=== PATIENT | female | born 1965 | race African-American/Black ===

== ENCOUNTER 2016-11-27 01:00 | Observation (INO) | payer OTHER ==
[~2016-11-27] VITALS: Ht 157.5 cm; Wt 65.3 kg
[~2016-11-27 01:00] MED LIST: ALBU0.63 NEB; AMLO10TA4 PO; ASPI325T70 PO; CARV10CP PO; CARV12.52 PO; DESL5TAB PO; IBUP400T PO; ISOS20TA2 PO; ISOS30TA4 PO; LISI10TA2 PO; LORA10TA3 PO; NEBI10TA3 PO; PHEN100T82 PO; SULF1TAB24 PO; TIOT4MIS3 IH; antidepressant
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
--- NOTE | 2016-11-27 01:26 | EKG ---
[address] [address] Test Date: 2016-11-27 Test Time: 01:24:28 Pat Name: YAJAIRA HOBBS Department: Room: Gender: F Research Technologist: : 1965 Requested By: CHASE OLMSTEAD Order Number: [id number] Reading MD: Measurements Intervals [place] Rate: 75 P: 52 FL: 202 QRS: -20 QRSD: 100 T: 126 QT: 408 QTc: 458 Interpretive Statements SINUS RHYTHM LEFTWARD AXIS CONSIDER LEFT VENTRICULAR HYPERTROPHY QRS(T) CONTOUR ABNORMALITY CONSIDER ANTEROSEPTAL MYOCARDIAL DAMAGE ST & T ABNORMALITY, CONSIDER HIGH LATERAL ISCHEMIA OR LEFT VENTRICULAR STRAIN ABNORMAL ECG RI6.01 Unconfirmed report Compared to ECG 07/21/2016 18:45:10 Possible ischemia now present Left anterior fascicular block no longer present Prolonged QT interval no longer present T-wave abnormality still present
[2016-11-27] MEDS ORDERED: IV RINGERS SOLUTION,LACTATED 1,000 ML IV SCH ×2 (01:30→03:00)
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
[2016-11-27 01:47] LABS: BASO # 0.1 x10^3/uL (0.0-0.2); BASO % 1 % (0-3); EOS # 0.1 x10^3/uL (0.0-0.7); EOS % 3 % (0-3); HEMATOCRIT 39.4 % (36.0-47.0); HEMOGLOBIN 13.1 g/dL (12.0-15.5); LYMPH % 54 % (24-48); MEAN CORPUSCULAR HEMOGLOBIN 30 pg (25-35); MEAN CORPUSCULAR HGB CONC 33 g/dL (31-37); MEAN CORPUSCULAR VOLUME 91 fL (79-100); MONO # 0.6 x10^3/uL (0.0-1.1); MONO % 10 % (0-9); NEUT # 1.8 x10^3uL (1.8-7.7); NEUT % 32 % (31-73); PLATELET COUNT 105 x10^3/uL (140-400); RED BLOOD COUNT 4.34 x10^6/uL (3.50-5.40); RED CELL DISTRIBUTION WIDTH 14.5 % (11.5-14.5); WHITE BLOOD COUNT 5.7 x10^3/uL (4.0-11.0)
[2016-11-27] MEDS ORDERED: IV RINGERS SOLUTION,LACTATED 1,000 ML IV ONE (01:47)
[2016-11-27] MEDS ORDERED: ASPIRIN 81 MG TAB.CHEW ONE (01:49)
[2016-11-27] MEDS ORDERED: ASPIRIN 325 MG TABLET PO ONE (02:00)
[2016-11-27 02:06] LABS: ALBUMIN 3.2 g/dL (3.4-5.0); ALK PHOS 72 U/L (46-116); ALT (SGPT) 26 U/L (14-59); ANION GAP 10 (6-14); AST (SGOT) 21 U/L (15-37); BLOOD UREA NITROGEN 8 mg/dL (7-20); CALCIUM 8.4 mg/dL (8.5-10.1); CARBON DIOXIDE 28 mmol/L (21-32); CHLORIDE 109 mmol/L (98-107); CREATINE KINASE 151 U/L (26-192); CREATININE 0.7 mg/dL (0.6-1.0); DIRECT BILIRUBIN 0.1 mg/dL (0.0-0.2); GFR 105.9; GLUCOSE 88 mg/dL (70-99); LIPASE 453 U/L (73-393); MAGNESIUM 1.6 mg/dL (1.8-2.4); POTASSIUM 3.6 mmol/L (3.5-5.1); SODIUM 147 mmol/L (136-145); TOTAL BILIRUBIN 0.2 mg/dL (0.2-1.0); TOTAL PROTEIN 7.2 g/dL (6.4-8.2)
[2016-11-27 02:12] LABS: BARBITURATES NEG (NEG); BENZODIAZEPINES NEG (NEG); CANNABINOIDS NEG (NEG); COCAINE NEG (NEG); METHADONE NEG (NEG); OPIATES NEG (NEG); PHENCYCLIDINE NEG (NEG)
[2016-11-27 02:14] LABS: BACTERIA,URINE 0 /HPF (0-FEW); BILIRUBIN,URINE NEG (NEG); CLARITY,URINE CLEAR; COLOR,URINE YELLOW; GLUCOSE,URINE NEG (NEG); NITRITE,URINE NEG (NEG); RBC,URINE 0 /HPF (0-2); SQUAMOUS EPITHELIAL CELL,UR OCC /LPF; UROBILINOGEN,URINE 0.2 mg/dL (0.2 mg/dL); WBC,URINE OCC /HPF (0-4)
[2016-11-27] MEDS ORDERED: ONDANSETRON PF 4 MG/2 ML VIAL. IV PRN (02:30)
[2016-11-27 02:32] LABS: AMPHETAMINE/METHAMPHETAMINE NEG (NEG)
[2016-11-27] MEDS ORDERED: LORAZEPAM 2 MG/ML VIAL IV PRN (03:00)
[2016-11-27] MEDS ORDERED: MAGNESIUM SULFATE 2GM 50 ML IV ONE (03:00)
--- NOTE | 2016-11-27 03:02 | ACF ---
Admission Criteria Forms TRANSIENT ISCHEMIC ATTACK (TIA) Clinical Indications for Admission to Inpatient Care (Place 'X' for any and all applicable criteria): Admission is indicated for ANY ONE of the following(1)(2)(3)(4)(5): [ ]I. Immediate inpatient procedure is needed (eg, endarterectomy). [ ]II. Inpatient admission required rather than observation care (Also use Transient Ischemic Attack (TIA): Observation Care Criteria as appropriate) because of ANY ONE of the following: [ ]a) Focal neurologic signs or symptoms persist or recurring [ ]b) Cardiac arrhythmias of immediate concern [ ]c) Clinically significant cardiac disorder identified that requires inpatient care (eg, severe valvular disease, atrial myxoma, cardiomyopathy) [ ]d) Hypertension requiring inpatient treatment [ ]e) Parenteral anticoagulation required (eg, alternative forms of anticoagulation not appropriate or not feasible) as indicated by ALL of the following(13): [ ]i) Temporary subtherapeutic anticoagulation unacceptable because of high risk of short-term venous or arterial thromboembolism due to ANY ONE of the following(14)(15)(16): [ ]1) Atrial fibrillation suspected as etiology of TIA(17)(18)(19)(20)(21) [ ]2) Venous thromboembolism within past 12 months [ ]3) Underlying malignancy [ ]4) Patient with mechanical cardiac valve(22)( 23) [ ]5) Underlying hypercoagulable state (eg, protein C or protein S deficiency antithrombin deficiency, antiphospholipid antibodies) [ ]6) Patient at temporary high risk of thromboembolism (eg, status post orthopedic surgery) [ ]ii) Contraindications to outpatient use of "bridging" agent or alternative oral anticoagulant[B] as indicated by ALL of the following: [ ]1) Contraindication to outpatient use of low- molecular-weight heparin as "bridging" agent as indicated by ANY ONE of the following(15): [ ]A. Documented current or history of heparin-induced thrombocytopenia(24) [ ]B. Severe thrombocytopenia (eg, platelet count less than 50,000/mm3 (10z363/L) [ ]C. Documented allergy to heparin, low- molecular-weight heparin, or pork products [ ]D. Renal failure (creatinine clearance less than 30 mL/min/1.73m2 (0.50mL/sec/1.73m2) or on dialysis) [ ]E. Inability to manage self-injection ( eg, by patient, caregiver, or visiting nurse) [ ]2) Contraindication to outpatient use of fondaparinux as "bridging" agent as indicated by ANY ONE of the following(25)(26 )(27)(28): [ ]A. Severe thrombocytopenia (eg, platelet count less than 50,000/mm3 (50 x109/L)) [ ]B.Hypersensitivity to fondaparinux, related drugs, or product components [ ]C.Renal failure (creatinine clearance less than 30 mL/min/1.73m2 (0.50mL/sec/1.73m2) or on dialysis) [ ]D.Inability to manage self-injection ( eg, by patient, caregiver, or visiting nurse [ ]3. Oral direct thrombin inhibitor (eg, dabigatran) or oral coagulation factor Xa inhibitor (eg, rivaroxaban, apixaban) not appropriate as oral anticoagulation (eg, indication not appropriate) or contraindicated (eg, hypersensitivity, creatinine clearance less than 15 mL/min/1.73m2 ( 0.25 mL/sec/1.73m2) or on dialysis). [ ]f) Continuous IV infusion of anticoagulant, platelet inhibitor, vasoactive or antiarrhythmia(18)(19) [ ]g) Other condition, treatment, or monitoring requiring inpatient admission [ ]III. Contraindications and/or Inappropriate clinical situations for Observational Care in patients with Transient Ischemic Attack (TIA), when ANY ONE of the following is required: [ ]a) Patient with persistent or severe neurological deficit 24 [ ]b) Patient with acute CVA or other identified pathology should be admitted to inpatient for further care 25 [ ]IV. General contraindications and/or Inappropriate clinical situations for Observational Care in patients with Transient Ischemic Attack (TIA), when ANY ONE of the following is required: [ ]a) Prediction of prolongation of LOS based on ANY ONE of the following may be considered as a contraindication for observational care 2, 3, 4, 5, 6, 7, 8, 9, 10, 11 [ ]i) Age > 65 yrs. [ ]ii) Patient arriving by ambulance [ ]iii) Patient with high acuity [ ]iv) Patient requiring vital sign monitoring [ ]v) Patient on IV medication [ ]b) Systolic blood pressures 180mmHg 3,12 [ ]c) Patient with altered mental status including delirium and other alteration of consciousness, (3) [ ]d) Patient whose discharge disposition will be to a custodial home or rehabilitation home should not be managed in Emergency Department Observation Unit. CMS rule requires 3 days hospital stay before such placement.3,13 [ ]e) Patient with failure to thrive due to broad array of etiologies 3,16,17 [ ]f) Inability to ambulate 3,14 Extended stay beyond goal length of stay may be needed for(4)(30)(32): [ ]a) Parenteral anticoagulation required [ ]b) Dangerous arrhythmia [ ]c) Cardiac valvular disorder, atrial myxoma, cardiomyopathy [ ]d) Uncontrolled severe hypertension [ ]e) Severe carotid stenosis [ ]f) Active comorbidities (eg, heart failure) [ ]g) Extracranial vertebrobasilar disease(29) [ ]h) Clinical evolution of TIA into cerebrovascular accident (stroke) The original [facility] content created by [email or web address] has been revised. The portions of thecontent which have been revised are identified through the use of italic text or in bold, and [facility] has neither reviewed nor approved the modified material. All other unmodified content is copyright [email or web address]. Please see references footnoted in the original [facility] edition 2016 IVETTE GARCIA Nov 27, 2016 03:02
[2016-11-27 03:14] VITALS: BP 128/86
[2016-11-27] MEDS ORDERED: FLUT16SP NAS (04:07)
[2016-11-27] MEDS ORDERED: OMEP20CA9 PO (04:07)
[2016-11-27] MEDS ORDERED: CARV25TA2 PO (04:07)
[2016-11-27] MEDS ORDERED: FAMO20TA5 PO (04:07)
[2016-11-27] MEDS ORDERED: LISI-334 PO (04:07)
[2016-11-27] MEDS ORDERED: LORA10TA3 PO (04:07)
--- NOTE | 2016-11-27 07:15 | RAD ---
Portable chest, 11/27/2016: History: Dyspnea, chest pain Comparison is made to a study from 07/21/2016. The heart size and pulmonary vascularity are normal. There appears to be a tiny granuloma in the left upper lobe. No acute infiltrates are seen. There is no evidence of pleural fluid. IMPRESSION: No acute cardiopulmonary abnormality is detected.
[2016-11-27] MEDS ORDERED: FAMOTIDINE 20 MG TABLET PO SCH (09:00)
[2016-11-27] MEDS: IPRATRPIUM/ALBUTEROL 0.5/2.5MG 3 ML NEBU. NEB SCH ×4 (09:47→20:31)
[2016-11-27] MEDS: ASPIRIN 81 MG TAB.CHEW PO SCH ×2 (10:07→11:39)
[2016-11-27] MEDS: LORAZEPAM 1 MG TABLET. PO SCH ×4 (10:07→19:54)
[2016-11-27] MEDS ORDERED: MOME13HF IH (10:20)
[2016-11-27] MEDS ORDERED: ALBU18HF IH (10:20)
[2016-11-27] MEDS ORDERED: TIOT18CA IH (10:20)
[2016-11-27] MEDS ORDERED: ASPI81TA2 PO (10:20)
[2016-11-27] MEDS ORDERED: ALBUTEROL SULFATE 8GM INHALER. IH PRN (10:30)
[2016-11-27] MEDS: MVI, ADULT NO.4 WITH VIT K 10 ML, FOLIC ACID SYRINGE for ER 1 MG, THIAMINE 100 MG in IV... IV SCH ×4 (10:34)
[2016-11-27 10:44] VITALS: BP 158/92
[2016-11-27] MEDS ORDERED: ALBUTEROL SULFATE 2.5 MG/3 ML NEBU. NEB PRN (10:45)
[2016-11-27] MEDS: FAMOTIDINE 20 MG TABLET PO SCH ×2 (11:51→19:54)
[2016-11-27] MEDS: LISINOPRIL 20 MG TABLET PO SCH (11:52)
[2016-11-27] MEDS: CETIRIZINE HCL 10 MG TABLET PO SCH (11:52)
[2016-11-27] MEDS: CARVEDILOL 25 MG TABLET PO SCH ×2 (11:53→19:55)
--- NOTE | 2016-11-27 13:08 | RAD ---
Carotid ultrasound, 11/27/2016: History: Left-sided weakness and numbness, left facial drooping. Duplex evaluation of the carotid arteries in neck was performed including grayscale, color-flow and spectral Doppler analysis. There is mild intimal thickening and smooth plaquing in the common carotid arteries and at the carotid bifurcations. The Doppler data obtained from the bifurcations reveals no significant focal velocity acceleration to suggest a hemodynamically significant carotid stenosis. Antegrade flow is present in both vertebral arteries in the neck. IMPRESSION: No duplex evidence of a significant carotid stenosis in the neck. Note: Stenosis calculations for CT, MRA and conventional angiography are based upon determination of the distal ICA diameter in accordance with the NASCET methodology. Stenosis calculations for Doppler studies are derived from validated velocity criteria which are known to correlate with NASCET methodology of determining stenosis.
[2016-11-27 15:47] VITALS: BP 131/94
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
[2016-11-27] MEDS: BUDESONIDE 0.5 MG/2 ML NEBU NEB SCH (20:31)
[2016-11-27] MEDS ORDERED: NON FORMULARY ITEM (Mometasone/Formoterol (Dulera 200 Mcg/5 Mcg Inhaler) 2 PUFF) IH SCH (21:00)
[2016-11-27 21:30] VITALS: BP 146/93
[2016-11-28] MEDS: IPRATRPIUM/ALBUTEROL 0.5/2.5MG 3 ML NEBU. NEB SCH ×2 (05:42→11:18)
[2016-11-28 05:50] VITALS: BP 157/104
[2016-11-28 06:54] LABS: BASO % 1 % (0-3); EOS # 0.2 x10^3/uL (0.0-0.7); EOS % 5 % (0-3); HEMATOCRIT 36.6 % (36.0-47.0); HEMOGLOBIN 11.9 g/dL (12.0-15.5); LYMPH # 1.5 x10^3/uL (1.0-4.8); LYMPH % 37 % (24-48); MEAN CORPUSCULAR HEMOGLOBIN 30 pg (25-35); MEAN CORPUSCULAR HGB CONC 33 g/dL (31-37); MEAN CORPUSCULAR VOLUME 92 fL (79-100); MONO # 0.4 x10^3/uL (0.0-1.1); MONO % 9 % (0-9); NEUT # 1.9 x10^3uL (1.8-7.7); NEUT % 48 % (31-73); PLATELET COUNT 77 x10^3/uL (140-400); RED BLOOD COUNT 3.98 x10^6/uL (3.50-5.40); RED CELL DISTRIBUTION WIDTH 14.2 % (11.5-14.5)
[2016-11-28 07:17] LABS: ALBUMIN 2.8 g/dL (3.4-5.0); ALBUMIN/GLOBULIN RATIO 0.8 (1.0-1.7); CALCIUM 8.3 mg/dL (8.5-10.1); CREATININE 0.7 mg/dL (0.6-1.0); GFR 105.9; POTASSIUM 3.6 mmol/L (3.5-5.1); TOTAL BILIRUBIN 0.5 mg/dL (0.2-1.0); TOTAL PROTEIN 6.5 g/dL (6.4-8.2)
[2016-11-28] MEDS ORDERED: PANTOPRAZOLE 40 MG TABLET. PO SCH (07:30)
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
[2016-11-28] MEDS: CARVEDILOL 25 MG TABLET PO SCH (08:28)
[2016-11-28] MEDS: ASPIRIN 81 MG TAB.CHEW PO SCH ×2 (08:28→08:29)
[2016-11-28] MEDS: CETIRIZINE HCL 10 MG TABLET PO SCH (08:28)
[2016-11-28] MEDS: FAMOTIDINE 20 MG TABLET PO SCH (08:28)
[2016-11-28] MEDS: LISINOPRIL 20 MG TABLET PO SCH (08:29)
[2016-11-28] MEDS: LORAZEPAM 1 MG TABLET. PO SCH ×2 (08:29→11:46)
[2016-11-28] MEDS ORDERED: FLUTICASONE 50MCG/NASAL SPRAY 16GM BOTTLE. NS SCH (09:00)
[2016-11-28] MEDS ORDERED: NON FORMULARY ITEM (Tiotropium Bromide (Spiriva) 1 CAP) IH SCH (09:00)
[2016-11-28] MEDS: MVI, ADULT NO.4 WITH VIT K 10 ML, FOLIC ACID SYRINGE for ER 1 MG, THIAMINE 100 MG in IV... IV SCH ×4 (09:21)
[2016-11-28 10:56] VITALS: BP 160/95
[2016-11-28] MEDS: BUDESONIDE 0.5 MG/2 ML NEBU NEB SCH (11:18)
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
== END 2016-11-28 13:57 | disposition home or self-care (01) ==
LOC: ER 01:00 → ICU 02:37 → INTOOBSV 02:37 → 1 SOUTH 07:17
PROVIDERS: ADMIT Internal Medicine; ATTEND Internal Medicine
DX: F10.129 Alcohol abuse with intoxication, unspecified (principal); H11.32 Conjunctival hemorrhage, left eye; I10 Essential (primary) hypertension; I42.8 Other cardiomyopathies; J45.998 Other asthma; I25.10 Atherosclerotic heart disease of native coronary artery without angina pectoris; F19.10 Other psychoactive substance abuse, uncomplicated; K21.9 Gastro-esophageal reflux disease without esophagitis; H91.92 Unspecified hearing loss, left ear; F32.9 Major depressive disorder, single episode, unspecified; F17.210 Nicotine dependence, cigarettes, uncomplicated; Z86.73 Personal history of transient ischemic attack (TIA), and cerebral infarction without residual deficits; Z82.49 Family history of ischemic heart disease and other diseases of the circulatory system; W34.00XA Accidental discharge from unspecified firearms or gun, initial encounter; Y90.8 Blood alcohol level of 240 mg/100 ml or more
CPT/HCPCS: 36415; 70450; 71010; 80048; 80053; 80061; 80076; 81001; 82553; 83690; 83735; 83880; 84443; 84484; 85027; 85610; 85730; 93005; 93880; 94640; 96361; 96365; 96366; 96367; 97161; 97165; 97530; 99285; A9153; G0378; G0480; G0481; J3411; J3475; J7120; J7620; J7626; G0379

== ENCOUNTER 2016-11-28 20:18 | Emergency (ER) | payer OTHER ==
[~2016-11-28] VITALS: Ht 157.5 cm; Wt 65.4 kg
[~2016-11-28 20:18] MED LIST changes: +ALBU18HF IH; +ASPI81TA2 PO; +CARV25TA2 PO; +FAMO20TA5 PO; +FLUT16SP NAS; +LISI-334 PO; +MOME13HF IH; +OMEP20CA9 PO; +TIOT18CA IH
[2016-11-28 20:29] VITALS: BP 128/83
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
--- NOTE | 2016-11-29 09:00 | RAD ---
Left shoulder, 3 views, 11/28/2016: History: Shoulder pain No fracture or dislocation is identified. There is mild degenerative change at the AC joint. The periarticular soft tissues are unremarkable. IMPRESSION: No acute bony abnormality is detected. Left humerus, 2 views, 11/28/2016: No fracture or destructive bony lesion is seen. The soft tissues are unremarkable. IMPRESSION: No significant left humeral abnormality is detected. Left elbow, 3 views, 11/28/2016: No fracture or dislocation is identified. There is mild spurring at the elbow joint. No significant joint effusion is evident. IMPRESSION: 1. Mild degenerative change. 2. No acute bony abnormality is detected.
== END 2016-11-28 21:22 | disposition left against medical advice (07) ==
LOC: ER 20:18
DX: M25.512 Pain in left shoulder (principal); M79.602 Pain in left arm; K21.9 Gastro-esophageal reflux disease without esophagitis; I10 Essential (primary) hypertension; G43.909 Migraine, unspecified, not intractable, without status migrainosus; E78.00 Pure hypercholesterolemia, unspecified; K27.9 Peptic ulcer, site unspecified, unspecified as acute or chronic, without hemorrhage or perforation
CPT/HCPCS: 73030; 73060; 73080; 99284

== ENCOUNTER 2016-12-29 21:00 | Emergency (ER) | payer OTHER ==
[~2016-12-29] VITALS: Ht 157.5 cm; Wt 65.4 kg
[~2016-12-29 21:00] MED LIST changes: +ASPI-630 PO; -ASPI81TA2 PO; -FLUT16SP NAS; +FLUT16SP21 NAS; -IBUP400T PO; +IBUP400T18 PO
[2016-12-29 21:15] VITALS: BP 105/74
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
[2016-12-29] MEDS ORDERED: IV NORMAL SALINE 1,000ML 1,000 ML IV ONE (21:30)
[2016-12-29 21:51] LABS: BASO # 0.1 x10^3/uL (0.0-0.2); BASO % 1 % (0-3); EOS # 0.1 x10^3/uL (0.0-0.7); EOS % 2 % (0-3); HEMATOCRIT 42.2 % (36.0-47.0); HEMOGLOBIN 14.2 g/dL (12.0-15.5); LYMPH # 3.1 x10^3/uL (1.0-4.8); LYMPH % 53 % (24-48); MEAN CORPUSCULAR HEMOGLOBIN 31 pg (25-35); MEAN CORPUSCULAR HGB CONC 34 g/dL (31-37); MEAN CORPUSCULAR VOLUME 91 fL (79-100); MONO # 0.9 x10^3/uL (0.0-1.1); MONO % 15 % (0-9); NEUT # 1.7 x10^3uL (1.8-7.7); NEUT % 29 % (31-73); PLATELET COUNT 102 x10^3/uL (140-400); RED BLOOD COUNT 4.63 x10^6/uL (3.50-5.40); RED CELL DISTRIBUTION WIDTH 13.9 % (11.5-14.5); WHITE BLOOD COUNT 5.8 x10^3/uL (4.0-11.0)
[2016-12-29 22:01] LABS: CALCIUM 8.7 mg/dL (8.5-10.1); CREATININE 0.7 mg/dL (0.6-1.0); GFR 106.3
[2016-12-29 22:06] LABS: POTASSIUM 2.9 mmol/L (3.5-5.1)
[2016-12-29 22:20] LABS: PREG TEST PT QUAL NEGATIVE (NEG)
[2016-12-29] MEDS ORDERED: POTA10CA PO (22:43)
[2016-12-29] MEDS ORDERED: POTASSIUM CHLORIDE 20 MEQ TABLET.ER. PO ONE (23:00)
== END 2016-12-29 22:50 | disposition home or self-care (01) ==
LOC: EDBD 21:00 → ER 21:00
DX: R19.7 Diarrhea, unspecified (principal); E87.6 Hypokalemia; R74.8 Abnormal levels of other serum enzymes; J45.909 Unspecified asthma, uncomplicated; I25.10 Atherosclerotic heart disease of native coronary artery without angina pectoris; K21.9 Gastro-esophageal reflux disease without esophagitis; I11.9 Hypertensive heart disease without heart failure; F17.210 Nicotine dependence, cigarettes, uncomplicated; F10.10 Alcohol abuse, uncomplicated; Z86.73 Personal history of transient ischemic attack (TIA), and cerebral infarction without residual deficits
CPT/HCPCS: 36415; 80048; 83690; 84703; 85027; 96360; 99284-25; J7030

== ENCOUNTER 2017-01-13 22:55 | Observation (INO) | payer OTHER ==
[~2017-01-13] VITALS: Ht 157.5 cm; Wt 66.5 kg
[~2017-01-13 22:55] MED LIST changes: +POTA10CA PO
[2017-01-13] MEDS ORDERED: 0.9 % SODIUM CHLORIDE 10 ML DISP.SYRIN. IV PRN (23:15)
[2017-01-13] MEDS ORDERED: fentaNYL PF 100 MCG/2 ML VIAL IV PRN (23:15)
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
[2017-01-13] MEDS ORDERED: LORazepam 2 MG/ML VIAL IV ONE (23:30)
[2017-01-13] MEDS ORDERED: IV NORMAL SALINE 1,000ML 1,000 ML IV SCH (23:30)
[2017-01-13 23:31] LABS: BASO % 1 % (0-3); EOS # 0.1 x10^3/uL (0.0-0.7); EOS % 2 % (0-3); HEMATOCRIT 40.6 % (36.0-47.0); HEMOGLOBIN 13.6 g/dL (12.0-15.5); LYMPH # 2.5 x10^3/uL (1.0-4.8); LYMPH % 40 % (24-48); MEAN CORPUSCULAR HEMOGLOBIN 31 pg (25-35); MEAN CORPUSCULAR HGB CONC 34 g/dL (31-37); MEAN CORPUSCULAR VOLUME 92 fL (79-100); MONO # 0.8 x10^3/uL (0.0-1.1); MONO % 13 % (0-9); NEUT # 2.8 x10^3uL (1.8-7.7); NEUT % 45 % (31-73); PLATELET COUNT 150 x10^3/uL (140-400); RED BLOOD COUNT 4.39 x10^6/uL (3.50-5.40); RED CELL DISTRIBUTION WIDTH 15.3 % (11.5-14.5); WHITE BLOOD COUNT 6.3 x10^3/uL (4.0-11.0)
[2017-01-13 23:37] LABS: BARBITURATES NEG (NEG); BENZODIAZEPINES NEG (NEG); CANNABINOIDS NEG (NEG); COCAINE NEG (NEG); METHADONE NEG (NEG); OPIATES NEG (NEG); PHENCYCLIDINE NEG (NEG)
[2017-01-13 23:39] LABS: AMPHETAMINE/METHAMPHETAMINE NEG (NEG)
[2017-01-13 23:45] LABS: BACTERIA,URINE 0 /HPF (0-FEW); BILIRUBIN,URINE NEG (NEG); CLARITY,URINE CLEAR; COLOR,URINE YELLOW; GLUCOSE,URINE NEG (NEG); NITRITE,URINE NEG (NEG); RBC,URINE 0 /HPF (0-2); SQUAMOUS EPITHELIAL CELL,UR OCC /LPF; UROBILINOGEN,URINE 0.2 mg/dL (0.2 mg/dL); WBC,URINE OCC /HPF (0-4)
[2017-01-13 23:47] LABS: ACETAMIN < 2.0 mcg/mL (10-30); ETHANOL 270 mg/dL (0-10); SALIC 2.7 mg/dL (2.8-20.0)
[2017-01-13 23:55] LABS: ALBUMIN 3.1 g/dL (3.4-5.0); ALBUMIN/GLOBULIN RATIO 0.7 (1.0-1.7); ALK PHOS 86 U/L (46-116); ALT (SGPT) 26 U/L (14-59); ANION GAP 10 (6-14); AST (SGOT) 14 U/L (15-37); BLOOD UREA NITROGEN 10 mg/dL (7-20); BUN/CREATININE RATIO 13 (6-20); CALCIUM 8.9 mg/dL (8.5-10.1); CARBON DIOXIDE 29 mmol/L (21-32); CHLORIDE 108 mmol/L (98-107); CREATINE KINASE 52 U/L (26-192); CREATININE 0.8 mg/dL (0.6-1.0); GFR 91.1; GLUCOSE 150 mg/dL (70-99); LIPASE 598 U/L (73-393); MAGNESIUM 1.9 mg/dL (1.8-2.4); POTASSIUM 3.7 mmol/L (3.5-5.1); SODIUM 147 mmol/L (136-145); TOTAL BILIRUBIN 0.2 mg/dL (0.2-1.0); TOTAL PROTEIN 7.3 g/dL (6.4-8.2)
[2017-01-14] VITALS (7 sets, daily range): BP systolic 112–158; BP diastolic 72–103
[2017-01-14] MEDS ORDERED: fentaNYL PF 100 MCG/2 ML VIAL IV PRN (00:15)
[2017-01-14] MEDS ORDERED: ONDANSETRON PF 4 MG/2 ML VIAL. IV PRN (00:15)
[2017-01-14] MEDS ORDERED: ACETAMINOPHEN 325 MG TABLET PO PRN (00:15)
[2017-01-14] MEDS ORDERED: LORazepam 2 MG/ML VIAL IV ONE (00:30)
--- NOTE | 2017-01-14 01:05 | NUR ---
Pt was admitted to [address] [place] [address] from ER via [facility], accompanied by EMS and nursing staff. Pt very reluctant to move over to bed from [facility], stating that she just wanted "to eat something" and that she was cold. Once pt was over to the bed, pt pulled the covers up over her head and asked for food. Pt education given on Pancreatitis and her diet. Pt upset with staff about "starving her" and made multiple phones calls to friends and family to bring her food. Pt answered all admission questions with answers like "I am allergic to not eating", " My pharmacy is [facility] and they would fed me I bet", " I don't have any pain if you let me eat." Pt placed on Telemetry, S tach noted on monitor. Pt lives at home with family. SCDs for VTE. Pt UTD on pneumonia vaccine. Pt given chicken broth, beef broth and Jello. IVFs started per order. The patient was given written information regarding hospital policies, unit procedures and contact persons. Valuables were checked and left in room except for a pack of cigarettes (placed in med room).
[2017-01-14] MEDS: IV NORMAL SALINE 1,000ML 1,000 ML IV SCH ×3 (01:37→20:18)
[2017-01-14] MEDS ORDERED: SACU1TAB7 PO (02:59)
[2017-01-14] MEDS ORDERED: METF500T4 PO (02:59)
--- NOTE | 2017-01-14 06:46 | EKG ---
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
--- NOTE | 2017-01-14 13:21 | NUR ---
Consults: Consults for Dr. Tarango and Dr. Germain ordered. Dr. Tarango's office notified and he has been in to see her. Request for consult for Dr. Germain faxed to [facility].
--- NOTE | 2017-01-14 13:28 | PDOC2 ---
CONSULT The patient has been seen and examined and the full consult has been dictated.~ I have summarized the most important points for review while the note is being transcribed.~ Please see the dictation for complete details. Summary: Chest pain: The patient cannot recall whether she had pain. It appears to be atypical. serial troponins are negative. She had a nonobstructive cardiac catheterization in September 2015. Abnormal EKG: Chronic. Her troponins are negative as above. Nonischemic cardiomyopathy: Mild. There is no evidence of heart failure Elevated lipase: Question alcohol related She can be discharged when okay with Dr. Edwards Problems: FARHAD VILLEDA MD January 14, 2017 13:28
[2017-01-14] MEDS ORDERED: ALBUTEROL SULFATE 8GM INHALER. IH PRN (13:45)
[2017-01-14] MEDS ORDERED: ALBUTEROL SULFATE 2.5 MG/3 ML NEBU. NEB PRN (14:00)
--- NOTE | 2017-01-14 14:05 | NUR ---
DRUG INTERACTIONS: patient home meds list both Entresto and Lisinopril, these are contraindicated together as the risk of angioedema increases as well as duplicate therapy with JESS/ARB combination. Lisinopril has been discontinued, most recent external med history shows that the patient filled Entresto most recently.
[2017-01-14] MEDS: IPRATRPIUM/ALBUTEROL 0.5/2.5MG 3 ML NEBU. NEB SCH ×2 (16:33→20:49)
[2017-01-14] MEDS: CARVEDILOL 25 MG TABLET PO SCH (17:33)
[2017-01-14] MEDS: SACUBITRIL/VALSARTAN 49/51MG TABLET. PO SCH ×2 (17:33→20:18)
[2017-01-14] MEDS ORDERED: LORazepam 1 MG TABLET PO PRN (19:45)
[2017-01-14] MEDS ORDERED: cloNIDine HCL 0.1 MG TABLET PO PRN (19:45)
[2017-01-14] MEDS ORDERED: BUDESONIDE 0.5 MG/2 ML NEBU NEB SCH (20:00)
[2017-01-14] MEDS: FAMOTIDINE 20 MG TABLET PO SCH (20:18)
[2017-01-14] MEDS ORDERED: NON FORMULARY ITEM (Mometasone/Formoterol (Dulera 200 Mcg/5 Mcg Inhaler) 2 PUFF) IH SCH (21:00)
[2017-01-14] MEDS ORDERED: SACUBITRIL/VALSARTAN 49/51MG TABLET. PO SCH (21:00)
[2017-01-14] MEDS ORDERED: CARVEDILOL 25 MG TABLET PO SCH (21:00)
--- NOTE | 2017-01-14 21:08 | PDOC ---
Exam Enoc Demential Exam: Enoc Note: Please also refer to the separate dictated note~for this date of service dictated separately.~Patient seen individually. Discussed the patient with Nursing staff reviewed the chart.~Reviewed interim history and current functioning. Reviewed vital signs,~Labs/ Radiology~and current medications noted below. Continue current treatment with the changes noted in the dictated addendum note Assessment: Vital Signs: Vital Signs Date Time Temp Pulse Resp B/P (MAP) Pulse Ox O2 Delivery O2 Flow Rate FiO2 01/14/17 20:54 98 Room Air 01/14/17 20:18 78 158/99 01/14/17 19:20 98.5 18 I&O Intake and Output 01/14/17 07:00 Intake Total 1783 ml Balance 1783 ml Intake Oral 460 ml IV Total 1323 ml # Voids 1 Labs: Laboratory Tests Test 01/13/17 23:05 01/13/17 23:15 01/14/17 05:48 01/14/17 10:57 White Blood Count 6.3 x10^3/uL (4.0-11.0) Red Blood Count 4.39 x10^6/uL (3.50-5.40) Hemoglobin 13.6 g/dL (12.0-15.5) Hematocrit 40.6 % (36.0-47.0) Mean Corpuscular Volume 92 fL (79-100) Mean Corpuscular Hemoglobin 31 pg (25-35) Mean Corpuscular Hemoglobin Concent 34 g/dL (31-37) Red Cell Distribution Width 15.3 % (11.5-14.5) H Platelet Count 150 x10^3/uL (140-400) Neutrophils (%) (Auto) 45 % (31-73) Lymphocytes (%) (Auto) 40 % (24-48) Monocytes (%) (Auto) 13 % (0-9) H Eosinophils (%) (Auto) 2 % (0-3) Basophils (%) (Auto) 1 % (0-3) Neutrophils # (Auto) 2.8 x10^3uL (1.8-7.7) Lymphocytes # (Auto) 2.5 x10^3/uL (1.0-4.8) Monocytes # (Auto) 0.8 x10^3/uL (0.0-1.1) Eosinophils # (Auto) 0.1 x10^3/uL (0.0-0.7) Basophils # (Auto) 0.0 x10^3/uL (0.0-0.2) Sodium Level 147 mmol/L (136-145) H Potassium Level 3.7 mmol/L (3.5-5.1) Chloride Level 108 mmol/L (98-107) H Carbon Dioxide Level 29 mmol/L (21-32) Anion Gap 10 (6-14) Blood Urea Nitrogen 10 mg/dL (7-20) Creatinine 0.8 mg/dL (0.6-1.0) Estimated GFR (Cockcroft-Gault) 91.1 BUN/Creatinine Ratio 13 (6-20) Glucose Level 150 mg/dL (70-99) H Calcium Level 8.9 mg/dL (8.5-10.1) Magnesium Level 1.9 mg/dL (1.8-2.4) Total Bilirubin 0.2 mg/dL (0.2-1.0) Aspartate Amino Transferase (AST) 14 U/L (15-37) L Alanine Aminotransferase (ALT) 26 U/L (14-59) Alkaline Phosphatase 86 U/L (46-116) Creatine Kinase 52 U/L (26-192) Creatine Kinase MB (Mass) < 0.5 ng/mL (0.0-3.6) Creatine Kinase MB Relative Index 1.0 % (0-4) Troponin I Quantitative < 0.017 ng/mL (0-0.055) < 0.017 ng/mL (0-0.055) < 0.017 ng/mL (0-0.055) JX-Hgb-N-Type Natriuretic Peptide 198 pg/mL (0-124) H Total Protein 7.3 g/dL (6.4-8.2) Albumin 3.1 g/dL (3.4-5.0) L Albumin/Globulin Ratio 0.7 (1.0-1.7) L Lipase 598 U/L (73-393) H Thyroid Stimulating Hormone (TSH) 1.622 uIU/mL (0.358-3.740) Salicylates Level 2.7 mg/dL (2.8-20.0) L Salicylate Last Dose Date 01/13/2017 Salicylate Last Dose Time 0000 Acetaminophen Level < 2.0 mcg/mL (10-30) L Acetaminophen Last Dose Date 01/13/2017 Acetaminophen Last Dose Time 0000 Ethyl Alcohol Level 270 mg/dL (0-10) H Urine Collection Type Unknown Urine Color Yellow Urine Clarity Clear Urine pH 6.0 Urine Specific Colstrip <=1.005 Urine Protein Neg (NEG-TRACE) Urine Glucose (UA) Neg mg/dL (NEG) Urine Ketones (Stick) Neg mg/dL (NEG) Urine Blood Neg (NEG) Urine Nitrite Neg (NEG) Urine Bilirubin Neg (NEG) Urine Urobilinogen Dipstick 0.2 mg/dL (0.2 mg/dL) Urine Leukocyte Esterase Neg (NEG) Urine RBC 0 /HPF (0-2) Urine WBC Occ /HPF (0-4) Urine Squamous Epithelial Cells Occ /LPF Urine Bacteria 0 /HPF (0-FEW) Urine Opiates Screen Neg (NEG) Urine Methadone Screen Neg (NEG) Urine Barbiturates Neg (NEG) Urine Phencyclidine Screen Neg (NEG) Urine Amphetamine/Methamphetamine Neg (NEG) Urine Benzodiazepines Screen Neg (NEG) Urine Cocaine Screen Neg (NEG) Urine Cannabinoids Screen Neg (NEG) Urine Ethyl Alcohol Pos (NEG) Test 01/14/17 16:38 Glucose (Fingerstick) 97 mg/dL (70-99) Current Medications: Meds: Current Medications Lorazepam (Ativan) 1 mg 1X ONCE IV Last administered on 01/13/17 23:24; Start 01/13/17 at 23:30; Stop 01/13/17 at 23:31; Status DC Fentanyl Citrate (Fentanyl 2ml Vial) 25 mcg PRN Q15MIN PRN IV PAIN GREATER THAN 3/10 Last administered on 01/13/17 23:24; Start 01/13/17 at 23:15; Stop at 19:40; Status DC Sodium Chloride 1,000 ml @ 1,000 mls/hr Q1H IV Last administered on 01/13/17 23:24; Start 01/13/17 at 23:30; Stop 01/14/17 at 00:29; Status DC Sodium Chloride (Normal Saline Flush) 10 ml QSHIFT PRN IV AFTER MEDS AND BLOOD DRAWS; Start 01/13/17 at 23:15 Ondansetron HCl (Zofran) 4 mg PRN Q4HRS PRN IV NAUSEA/VOMITING; Start 01/14/17 at 00:15; Stop 01/15/17 at 00:14 Fentanyl Citrate (Fentanyl 2ml Vial) 50 mcg PRN Q1HR PRN IV SEVERE PAIN; Start 01/14/17 at 00:15; Stop 01/14/17 at 19:40; Status DC Sodium Chloride 1,000 ml @ 100 mls/hr Q10H IV Last administered on 01/14/17 20:18; Start 01/14/17 at 00:15; Stop 01/15/17 at 00:14 Acetaminophen (Tylenol) 650 mg PRN Q4HRS PRN PO FEVER; Start 01/14/17 at 00:15 ; Stop 01/15/17 at 00:14 Lorazepam (Ativan) 1 mg 1X ONCE IV Last administered on 01/14/17 01:37; Start 01/14/17 at 00:30; Stop 01/14/17 at 00:31; Status DC Albuterol Sulfate (Ventolin Hfa) 2 puff PRN Q6HRS PRN IH WHEEZING; Start at 13:45; Stop 01/14/17 at 13:56; Status DC Aspirin (Children'S Aspirin) 81 mg DAILY PO ; Start 01/15/17 at 09:00 Carvedilol (Coreg) 25 mg BID PO ; Start 01/14/17 at 21:00; Stop 01/14/17 at 21: 00; Status DC Famotidine (Pepcid) 20 mg BID PO Last administered on 01/14/17 20:18; Start at 21:00 Fluticasone Propionate (Flonase) 2 spray DAILY NS ; Start 01/15/17 at 09:00 Lisinopril (Prinivil) 20 mg DAILY PO ; Start 01/15/17 at 09:00; Stop 01/15/17 at 09:00; Status DC Metformin HCl (Glucophage) 500 mg DAILY08 PO ; Start 01/15/17 at 08:00 Potassium Chloride (Klor-Con) 10 meq DAILYWBKFT PO ; Start 01/15/17 at 08:00 Sacubitril/ Valsartan (Entresto 49 Mg-51 Mg) 1 tab BID PO ; Start 01/14/17 at 21 :00; Stop 01/14/17 at 21:00; Status DC Cetirizine HCl (ZyrTEC) 10 mg DAILY PO ; Start 01/15/17 at 09:00 Non-Formulary Medication 2 puff BID IH ; Start 01/14/17 at 21:00; Stop 01/14/17 at 21:00; Status DC Pantoprazole Sodium (Protonix) 40 mg DAILYAC PO ; Start 01/15/17 at 07:30 Non-Formulary Medication 1 cap DAILY IH ; Start 01/15/17 at 09:00; Stop at 09:00; Status DC Albuterol/ Ipratropium (Duoneb) 3 ml RTQID NEB Last administered on 01/14/17 20:49; Start 01/14/17 at 16:00 Budesonide (Pulmicort) 0.5 mg RTBID NEB Last administered on 01/14/17 20:49; Start 01/14/17 at 20:00 Albuterol Sulfate (Ventolin) 2.5 mg PRN Q6HRS PRN NEB SHORTNESS OF BREATH; Start 01/14/17 at 14:00 Sacubitril/ Valsartan (Entresto 49 Mg-51 Mg) 1 tab BID PO Last administered on 01/14/17 20:18; Start 01/14/17 at 17:30 Carvedilol (Coreg) 25 mg BID PO Last administered on 01/14/17 17:33; Start at 17:30 Lorazepam (Ativan) 2 mg PRN Q1HR PRN PO For CIWA 8-14; Start 01/14/17 at 19:45 Clonidine HCl (Catapres) 0.1 mg PRN Q1HR PRN PO SBP>180 OR DBP>100, MR X 3; Start 01/14/17 at 19:45 Active Scripts Active Potassium Chloride 10 Meq Capsule.er 1 Cap PO DAILY Reported Metformin Hcl 500 Mg Tablet 500 Mg PO DAILY08 LAST DOSE GIVEN: DATE: TIME: NEXT DOSE DUE: DATE: TIME: Entresto 49 mg-51 mg Tablet (Sacubitril/Valsartan) 1 Each Tablet 1 Tab PO BID LAST DOSE GIVEN: DATE: TIME: NEXT DOSE DUE: DATE: TIME: Aspirin 81 Mg Tab.chew 81 Mg PO DAILY LAST DOSE GIVEN: DATE: TIME: NEXT DOSE DUE: DATE: TIME: Dulera 200 Mcg/5 Mcg Inhaler (Mometasone/Formoterol) 13 Gm Hfa.aer.ad 2 Puff IH BID LAST DOSE GIVEN: DATE: TIME: NEXT DOSE DUE: DATE: TIME: Spiriva (Tiotropium Flippin) 18 Mcg Cap.w.dev 1 Cap IH DAILY LAST DOSE GIVEN: DATE: TIME: NEXT DOSE DUE: DATE: TIME: Ventolin Hfa Inhaler (Albuterol Sulfate) 18 Gm Hfa.aer.ad 2 Puff IH PRN Q6HRS PRN LAST DOSE GIVEN: DATE: TIME: NEXT DOSE DUE: DATE: TIME: Famotidine 20 Mg Tablet 20 Mg PO BID LAST DOSE GIVEN: DATE: TIME: NEXT DOSE DUE: DATE: TIME: Omeprazole 20 Mg Capsule.dr 20 Mg PO DAILY LAST DOSE GIVEN: DATE: TIME: NEXT DOSE DUE: DATE: TIME: Loratadine 10 Mg Tablet 10 Mg PO DAILY LAST DOSE GIVEN: DATE: TIME: NEXT DOSE DUE: DATE: TIME: Lisinopril 20 Mg Tablet 20 Mg PO DAILY LAST DOSE GIVEN: DATE: TIME: NEXT DOSE DUE: DATE: TIME: Carvedilol 25 Mg Tablet 25 Mg PO BID LAST DOSE GIVEN: DATE: TIME: NEXT DOSE DUE: DATE: TIME: Fluticasone Propionate Nasal Chrisman (Fluticasone Propionate) 16 Gm Chrisman.susp 2 Chrisman IVVI DAILY LAST DOSE GIVEN: DATE: TIME: NEXT DOSE DUE: DATE: TIME: NAGI HAYES MD January 14, 2017 21:08
[2017-01-15] MEDS: IPRATRPIUM/ALBUTEROL 0.5/2.5MG 3 ML NEBU. NEB SCH (05:49)
[2017-01-15 06:05] VITALS: BP 142/85
[2017-01-15] MEDS ORDERED: PANTOPRAZOLE 40 MG TABLET. PO SCH (07:30)
[2017-01-15] MEDS ORDERED: metFORMIN 500 MG TABLET PO SCH (08:00)
[2017-01-15] MEDS ORDERED: POTASSIUM CHLORIDE 10 MEQ TABLET.ER. PO SCH (08:00)
--- NOTE | 2017-01-15 08:27 | ACF ---
Admission Criteria Forms ALCOHOL AND PSYCHOACTIVE SUBSTANCE WITHDRAWAL Clinical Indications for Inpatient Care (Place ' X' for any and all applicable criteria): Ongoing inpatient care may be indicated for substance withdrawal[B][C] with ANY ONE of the following(1)(2)(3)(4)(21): [ ]I. Delirium due to alcohol or sedative[D] withdrawal is present. [ ]II. Marked signs of withdrawal are present as indicated by ANY ONE of the following(15)(22)(23) [ ]a) Heart rate greater than 120 beats per minute is present. [ ]b) Severe vomiting is present (eg, precludes maintenance of oral hydration). [ ]c) Grossly visible tremor is present. [ ]d) Profuse perspiration is present. [ ]e) Temperature greater than 101 degrees F (38.3 degrees C) is present. [ ]f) Other signs of severe withdrawal are present (eg, Altered mental status ) [ ]g) Severe withdrawal identified by standardized assessment score[A] [ ]III. Signs of withdrawal that require continued inpatient treatment as indicated by ANY ONE of the following(15)(22)(23): [ ]a) Inadequate response to pharmacotherapy (eg, benzodiazepines) [ ]b) Outpatient or lower level of care is not feasible or appropriate (eg, unavailable or inappropriate to patient condition or treatment history). [ ]IV. Withdrawal signs with high-risk indicator are present as manifested by ALL of the following[A](15)(22)(23) [ ]a) Signs of withdrawal are present as indicated by ANY ONE of the following: [ ]i. Tachycardia is present. [ ]ii. Nausea or vomiting is present. [ ]iii. Tremor is present. [ ]iv. Increased perspiration is present. [ ]v. Other signs of withdrawal are present. [ ]vi. Withdrawal identified by standardized assessment score [A] [ ]b) Elevated risk due to historical or comorbid factor is present as indicated by ANY ONE of the following: [ ]i. History of delirium due to withdrawal is present. [ ]ii. History of seizures due to withdrawal is present.[E] [ ]iii. Intrinsic seizure disorder (epilepsy) is present. [ ]iv. Patient is . [ ]v. Other significant medical history (eg, severe cardiac disease) is present, which is assessed to be at risk for destabilization due to withdrawal. [ ]V. Serious electrolyte abnormalities (eg, hyponatremia, hypokalemia, hypophosphatemia) requiring correction performable only in inpatient setting(6)(25) [ ]. Severe hypoglycemia requiring glucose infusions performable only in inpatient setting(6) [ ]VII. Drug toxicity or instability, such as Altered mental status, respiratory depression, or arrhythmias, that requires inpatient care [ ]VIII. Danger judged unmanageable at lower level of care because of ANY ONE of the following [ ]a) Danger to self [ ]b) Danger to others [ ]c) Grave disability (eg, inability to perform self-care necessary at lower level of care) The original [employer] content created by [employer] has been revised. The portions of the content which have been revised are identified through the use of italic text or in bold. [facility] Care [facility] has neither reviewed nor approved the modified material. All other unmodified content is copyright [employer]. Please see references footnoted in the original [facility] CareGuidelines edition 2016 IVETTE GARCIA January 15, 2017 08:27
[2017-01-15] MEDS ORDERED: ESCITALOPRAM 5 MG TABLET PO SCH (09:00)
[2017-01-15] MEDS ORDERED: NON FORMULARY ITEM (Tiotropium Bromide (Spiriva) 1 CAP) IH SCH (09:00)
[2017-01-15] MEDS ORDERED: LISINOPRIL 20 MG TABLET PO SCH (09:00)
[2017-01-15] MEDS ORDERED: ASPIRIN 81 MG TAB.CHEW PO SCH (09:00)
[2017-01-15] MEDS ORDERED: FLUTICASONE 50MCG/NASAL SPRAY 16GM BOTTLE. NS SCH (09:00)
[2017-01-15] MEDS ORDERED: CETIRIZINE HCL 10 MG TABLET PO SCH (09:00)
[2017-01-15] MEDS ORDERED: NICOTINE 14MG PATCH. TD SCH (09:15)
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
[2017-01-15] MEDS: SACUBITRIL/VALSARTAN 49/51MG TABLET. PO SCH (09:42)
[2017-01-15 09:43] VITALS: BP 142/85
[2017-01-15] MEDS: FAMOTIDINE 20 MG TABLET PO SCH (09:43)
[2017-01-15] MEDS: CARVEDILOL 25 MG TABLET PO SCH (09:43)
--- NOTE | 2017-01-15 09:55 | NUR ---
Discharge Note: YAJAIRA HOBBS [address] Discharge instructions and discharge home medications reviewed with Patient and a copy given. All questions have been answered and understanding verbalized. The following instructions and handouts were given: MEDICATIONS, FOLLOW UP INSTRUCTIONS, EDUCATIONAL HANDOUTS GIVEN. Discontinued lines and drains: PERIPHERAL IV DISCONTINUED WITH NO COMPLICATIONS Patient discharged to HOME with FAMILY via AMBULATION. PATIENT STATED TO THIS NURSE THAT SHE WILL BE WALKING HOME. THIS NURSE TOLD THE PATIENT THAT IT WOULD BE PREFERABLE FOR SOMEONE TO COME AND PICK HER UP THE PATIENT STATED "I DON'T WANT TO BE AROUND ANY OF THEM RIGHT NOW. YOU CAN'T MAKE ME DO SHIT ONCE I'M DISCHARGED! I'M WALKING!" THIS NURSE OFFERED TO CALL THE PATIENT A CAB BUT THE PATIENT STATED "I DON'T NEED NO DAMN CAB! [facility] HER DOCTOR'S APPOINMENT."
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
== END 2017-01-15 10:00 | disposition home or self-care (01) ==
LOC: ER 22:55 → 1 SOUTH 01-14 00:20
PROVIDERS: ADMIT Family Medicine; ATTEND Family Medicine
DX: F10.129 Alcohol abuse with intoxication, unspecified (principal); E87.0 Hyperosmolality and hypernatremia; E44.1 Mild protein-calorie malnutrition; R07.9 Chest pain, unspecified; I25.10 Atherosclerotic heart disease of native coronary artery without angina pectoris; K86.1 Other chronic pancreatitis; I10 Essential (primary) hypertension; F17.210 Nicotine dependence, cigarettes, uncomplicated; F41.9 Anxiety disorder, unspecified; J45.909 Unspecified asthma, uncomplicated; K21.9 Gastro-esophageal reflux disease without esophagitis; F33.9 Major depressive disorder, recurrent, unspecified; I42.9 Cardiomyopathy, unspecified; R94.31 Abnormal electrocardiogram [ECG] [EKG]; R74.8 Abnormal levels of other serum enzymes; F19.10 Other psychoactive substance abuse, uncomplicated; E11.9 Type 2 diabetes mellitus without complications; S01.93XA Puncture wound without foreign body of unspecified part of head, initial encounter; W34.00XA Accidental discharge from unspecified firearms or gun, initial encounter; Y92.89 Other specified places as the place of occurrence of the external cause
CPT/HCPCS: 36415; 80053; 81001; 82553; 82947; 83690; 83735; 83880; 84443; 84484; 85027; 93005; 94640; 96361; 96374; 96375; 96376; 99285; 99406; G0378; G0480; G0481; G6038; J2060; J3010; J7030; J7620; J7626; G0379; 80196

== ENCOUNTER → 2017-02-07 | Outpatient (CLI) | payer OTHER ==
[2017-01-15 09:43] VITALS: BP 142/85
[~2017-02-07] MED LIST changes: +METF500T4 PO; +SACU1TAB7 PO
[2017-02-07 11:58] LABS: CALCIUM 8.4 mg/dL (8.5-10.1); CREATININE 0.8 mg/dL (0.6-1.0); GFR 91.1
== END | disposition home or self-care (01) ==
LOC: LAB 10:56
PROVIDERS: ATTEND Internal Medicine Cardiovascular Disease
DX: I42.9 Cardiomyopathy, unspecified (principal)
CPT/HCPCS: 36415; 80048; 83880

== ENCOUNTER → 2017-04-28 | Outpatient (CLI) | payer OTHER ==
[2017-04-28 11:08] LABS: CALCIUM 8.2 mg/dL (8.5-10.1); CREATININE 0.8 mg/dL (0.6-1.0); GFR 91.1
[2017-04-28 11:11] LABS: POTASSIUM 3.4 mmol/L (3.5-5.1)
== END | disposition home or self-care (01) ==
LOC: LAB 10:20
PROVIDERS: ATTEND Internal Medicine Cardiovascular Disease
DX: I42.9 Cardiomyopathy, unspecified (principal)
CPT/HCPCS: 36415; 80048

== ENCOUNTER 2017-12-07 01:24 | Emergency (ER) | payer OTHER ==
[~2017-12-07] VITALS: Ht 157.5 cm; Wt 65.4 kg
[~2017-12-07 01:24] MED LIST changes: -METF500T4 PO; +METF500T5 PO
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
--- NOTE | 2017-12-07 01:51 | EKG ---
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
[2017-12-07] MEDS ORDERED: IOHEXOL 300 MG/ML 75 ML VIAL. IV ONE (02:00)
[2017-12-07] MEDS ORDERED: MORPHINE SULFATE 10 MG/ML SYRINGE. SQ ONE (02:00)
[2017-12-07] MEDS ORDERED: CONTRAST GIVEN MC PRN (02:00)
[2017-12-07 02:22] LABS: BARBITURATES NEG (NEG); BENZODIAZEPINES NEG (NEG); CANNABINOIDS NEG (NEG); COCAINE NEG (NEG); METHADONE NEG (NEG); OPIATES NEG (NEG); PHENCYCLIDINE NEG (NEG)
[2017-12-07 02:23] LABS: BASO # 0.1 x10^3/uL (0.0-0.2); BASO % 2 % (0-3); EOS # 0.1 x10^3/uL (0.0-0.7); EOS % 3 % (0-3); HEMATOCRIT 40.8 % (36.0-47.0); LYMPH # 2.9 x10^3/uL (1.0-4.8); LYMPH % 54 % (24-48); MEAN CORPUSCULAR HEMOGLOBIN 31 pg (25-35); MEAN CORPUSCULAR HGB CONC 34 g/dL (31-37); MEAN CORPUSCULAR VOLUME 89 fL (79-100); MONO # 0.6 x10^3/uL (0.0-1.1); MONO % 10 % (0-9); NEUT # 1.7 x10^3uL (1.8-7.7); NEUT % 31 % (31-73); PLATELET COUNT 149 x10^3/uL (140-400); RED BLOOD COUNT 4.57 x10^6/uL (3.50-5.40); RED CELL DISTRIBUTION WIDTH 14.9 % (11.5-14.5); WHITE BLOOD COUNT 5.4 x10^3/uL (4.0-11.0)
[2017-12-07 02:23] LABS: BACTERIA,URINE FEW /HPF (0-FEW); BILIRUBIN,URINE NEG (NEG); CLARITY,URINE CLEAR; COLOR,URINE STRAW; GLUCOSE,URINE NEG (NEG); NITRITE,URINE NEG (NEG); RBC,URINE OCC /HPF (0-2); SQUAMOUS EPITHELIAL CELL,UR OCC /LPF; UROBILINOGEN,URINE 0.2 mg/dL (0.2 mg/dL); WBC,URINE OCC /HPF (0-4)
[2017-12-07 02:31] LABS: AMPHETAMINE/METHAMPHETAMINE NEG (NEG)
[2017-12-07 02:39] LABS: ALBUMIN 3.6 g/dL (3.4-5.0); CALCIUM 8.6 mg/dL (8.5-10.1); CREATININE 0.8 mg/dL (0.6-1.0); DIRECT BILIRUBIN 0.1 mg/dL (0.0-0.2); GFR 90.8; MAGNESIUM 1.7 mg/dL (1.8-2.4); POTASSIUM 3.8 mmol/L (3.5-5.1); TOTAL BILIRUBIN 0.3 mg/dL (0.2-1.0); TOTAL PROTEIN 7.5 g/dL (6.4-8.2)
[2017-12-07] MEDS ORDERED: IV NORMAL SALINE 100ML 100 ML ONE (04:29)
[2017-12-07] MEDS ORDERED: MAGNESIUM SULFATE 2GM 50 ML IV ONE (04:30)
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
[2017-12-07] MEDS ORDERED: HYDR-79 PO (05:26)
[2017-12-07 06:05] VITALS: BP 115/84
--- NOTE | 2017-12-07 08:38 | RAD ---
AP chest x-ray History: Fall, chest pain. Comparison: Chest x-ray November 27, 2016 Findings: Borderline cardiomegaly is stable. Tortuosity/ectasia of the thoracic aorta is stable. Left hilar calcified granulomas. No pneumothorax, pulmonary opacities or pleural effusions. Old left ninth and 10th rib deformities. Small left upper lobe calcified granuloma. Impression: No acute process.
== END 2017-12-07 06:05 | disposition home or self-care (01) ==
LOC: ER 01:24
DX: S22.018A Other fracture of first thoracic vertebra, initial encounter for closed fracture (principal); S83.30XA Tear of articular cartilage of unspecified knee, current, initial encounter; S20.212A Contusion of left front wall of thorax, initial encounter; S30.1XXA Contusion of abdominal wall, initial encounter; M54.2 Cervicalgia; K21.9 Gastro-esophageal reflux disease without esophagitis; F10.129 Alcohol abuse with intoxication, unspecified; E83.42 Hypomagnesemia; I11.0 Hypertensive heart disease with heart failure; I50.9 Heart failure, unspecified; G51.0 Bell's palsy; I25.10 Atherosclerotic heart disease of native coronary artery without angina pectoris; F32.9 Major depressive disorder, single episode, unspecified; G43.909 Migraine, unspecified, not intractable, without status migrainosus; J45.909 Unspecified asthma, uncomplicated; I25.2 Old myocardial infarction; F41.9 Anxiety disorder, unspecified; F17.210 Nicotine dependence, cigarettes, uncomplicated; F10.10 Alcohol abuse, uncomplicated; Z86.73 Personal history of transient ischemic attack (TIA), and cerebral infarction without residual deficits; W10.8XXA Fall (on) (from) other stairs and steps, initial encounter; Y93.89 Activity, other specified; Y99.8 Other external cause status; Y92.89 Other specified places as the place of occurrence of the external cause
CPT/HCPCS: 36415; 70450; 71045; 71260; 72125; 74177; 80048; 80076; 80307; 81001; 82553; 83690; 83735; 83880; 84443; 84484; 85025; 85610; 85730; 93005; 96365; 99285; G0480; J3475; Q9967; G0479

== ENCOUNTER 2018-08-07 22:01 | Emergency (ER) | payer OTHER ==
[~2018-08-07] VITALS: Ht 157.5 cm; Wt 62.6 kg
[~2018-08-07 22:01] MED LIST changes: -ALBU18HF IH; +ALBU2.5V8 IH; -CARV12.52 PO; +CARV12.547 PO; +HYDR-1179 PO; +METF500T16 PO; -METF500T5 PO
[2018-08-07] MEDS ORDERED: PRED50TA PO (22:19)
[2018-08-07] MEDS ORDERED: AMOX1TAB58 PO (22:19)
--- NOTE | 2018-08-07 22:32 | ED.ADGEN ---
Past History Past Medical History: Asthma, CAD, Depression, Diabetes, GERD, Heart Disease, Hypertension, Migraines, TIA, Other Past Surgical History: Smoking: Cigarettes Alcohol Use: Heavy Drug Use: None Adult General Chief Complaint Chief Complaint cough HPI HPI 52 years old female with multiple medical problems including COPD presented emergency department with wheezing and experiencing exertional shortness of breath for the past week no fever no chills Review of Systems Review of Systems Constitutional: Denies fever or chills [] Eyes: Denies change in visual acuity, redness, or eye pain [] HENT: Denies nasal congestion or sore throat [] Cardiovascular: No additional information not addressed in HPI [] GI: Denies abdominal pain, nausea, vomiting, bloody stools or diarrhea [] : Denies dysuria or hematuria [] Musculoskeletal: Denies back pain or joint pain [] Integument: Denies rash or skin lesions [] Neurologic: Denies headache, focal weakness or sensory changes [] Endocrine: Denies polyuria or polydipsia [] All other systems were reviewed and found to be within normal limits, except as documented in this note. Current Medications Current Medications Current Medications Medications (Trade) Dose Ordered Sig/Madhav Start Time Stop Time Status Last Admin Dose Admin Albuterol Sulfate (Ventolin) 2.5 mg 1X ONCE 08/07/18 22:45 08/07/18 22:46 Prednisone (Prednisone) 60 mg 1X ONCE 08/07/18 22:45 08/07/18 22:46 Allergies Allergies Allergies Coded Allergies Type Severity Reaction Last Updated Verified No Known Drug Allergies 09/28/15 No Physical Exam Physical Exam Constitutional: Well developed, well nourished, no acute distress, non-toxic appearance. [] HENT: Normocephalic, atraumatic, bilateral external ears normal, oropharynx moist, no oral exudates, nose normal. [] Eyes: PERRLA, EOMI, conjunctiva normal, no discharge. [] Neck: Normal range of motion, no tenderness, supple, no stridor. [] Cardiovascular:Heart rate regular rhythm, no murmur [] Lungs & Thorax: Diminished wheezing bilaterally] Abdomen: Bowel sounds normal, soft, no tenderness, no masses, no pulsatile masses. [] Skin: Warm, dry, no erythema, no rash. [] Back: No tenderness, no CVA tenderness. [] Extremities: No tenderness, no cyanosis, no clubbing, ROM intact, no edema. [] Neurologic: Alert and oriented X 3, normal motor function, normal sensory function, no focal deficits noted. [] Psychologic: Affect normal, judgement normal, mood normal. [] Current Patient Data Vital Signs Vital Signs Date Time Temp Pulse Resp B/P (MAP) Pulse Ox O2 Delivery O2 Flow Rate FiO2 08/07/18 22:11 97.4 95 16 99 Room Air EKG EKG [] Radiology/Procedures Radiology/Procedures [] Course & Med Decision Making Course & Med Decision Making Pertinent Labs and Imaging studies reviewed. (See chart for details) [] Final Impression Final Impression [] Problems: (1) COPD exacerbation Dragon Disclaimer Dragon Disclaimer This electronic medical record was generated, in whole or in part, using a voice recognition dictation system. RIA BUSTAMANTE MD Aug 07, 2018 22:32
[2018-08-07] MEDS ORDERED: ALBUTEROL SULFATE 2.5 MG/3 ML NEBU. NEB ONE (22:45)
[2018-08-07] MEDS ORDERED: predniSONE 20 MG TABLET PO ONE (22:45)
[2018-08-07 23:00] VITALS: BP 125/54
[2018-08-07] MEDS ORDERED: VARE1TAB20 PO (23:12)
[2018-08-07] MEDS ORDERED: ERYTHROMYCIN OP IO (23:12)
[2018-08-07] MEDS ORDERED: OLOP2.5D OP (23:12)
[2018-08-07] MEDS ORDERED: SPIR25TA5 PO (23:13)
[2018-08-07] MEDS ORDERED: MONT10TA9 PO (23:13)
--- NOTE | 2018-08-08 00:06 | RAD ---
Examination: CHEST AP ONLY History: Cough. Hx COPD Comparison/Correlation: None Findings: Upright portable frontal view chest was obtained. Heart size and pulmonary vascular are normal. No infiltrate or pleural effusion. Old left lower rib fractures are present. No pneumothorax. Impression: No active disease. Electronically signed by: Hector Harley MD (08/08/2018 12:02 AM) [facility]
== END 2018-08-07 23:06 | disposition home or self-care (01) ==
LOC: ER 22:01
DX: J44.1 Chronic obstructive pulmonary disease with (acute) exacerbation (principal); I25.10 Atherosclerotic heart disease of native coronary artery without angina pectoris; F32.9 Major depressive disorder, single episode, unspecified; E11.9 Type 2 diabetes mellitus without complications; K21.9 Gastro-esophageal reflux disease without esophagitis; I11.9 Hypertensive heart disease without heart failure; G43.909 Migraine, unspecified, not intractable, without status migrainosus; F17.210 Nicotine dependence, cigarettes, uncomplicated; F10.20 Alcohol dependence, uncomplicated; Z86.73 Personal history of transient ischemic attack (TIA), and cerebral infarction without residual deficits; Y90.9 Presence of alcohol in blood, level not specified
CPT/HCPCS: 71045; 94640; 99284; J7512; J7613

== ENCOUNTER 2018-09-01 20:10 | Emergency (ER) | payer OTHER ==
[~2018-09-01] VITALS: Ht 157.5 cm; Wt 65.4 kg
[~2018-09-01 20:10] MED LIST changes: +AMOX1TAB58 PO; +ERYTHROMYCIN OP IO; +MONT10TA9 PO; +OLOP2.5D OP; +PRED50TA PO; +SPIR25TA5 PO; +VARE1TAB20 PO
[2018-09-01 20:14] VITALS: BP 137/101
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
== END 2018-09-01 20:48 | disposition left against medical advice (07) ==
LOC: ER 20:10 → EEVIPCON 20:10 → ER 20:48
DX: R51 Headache (principal); J45.909 Unspecified asthma, uncomplicated; I25.10 Atherosclerotic heart disease of native coronary artery without angina pectoris; F32.9 Major depressive disorder, single episode, unspecified; E11.9 Type 2 diabetes mellitus without complications; K21.9 Gastro-esophageal reflux disease without esophagitis; I11.9 Hypertensive heart disease without heart failure; G43.909 Migraine, unspecified, not intractable, without status migrainosus; F17.210 Nicotine dependence, cigarettes, uncomplicated; F10.20 Alcohol dependence, uncomplicated; Z86.73 Personal history of transient ischemic attack (TIA), and cerebral infarction without residual deficits; Y90.9 Presence of alcohol in blood, level not specified; Y08.89XA Assault by other specified means, initial encounter; Y93.89 Activity, other specified; Y92.89 Other specified places as the place of occurrence of the external cause; Y99.8 Other external cause status
CPT/HCPCS: 99281; 99283

== ENCOUNTER 2018-10-31 01:17 | Emergency (ER) | payer OTHER ==
[~2018-10-31] VITALS: Ht 157.5 cm; Wt 59.0 kg
--- NOTE | 2018-10-31 01:39 | PHYS DOC ---
Past History Past Medical History: Asthma, CAD, Depression, Diabetes, GERD, Heart Disease, Hypertension, Migraines, TIA, Other Past Surgical History: Smoking: Cigarettes Alcohol Use: Heavy Drug Use: None Adult General HPI HPI Patient is a 52-year-old female who arrives via EMS with report of intermittent chest pain that started 2 days ago. Patient states that her pain is currently gone but states that her last episode of pain was just before calling EMS. She states the pain is sharp and stabbing in nature when it calms and states that it lasts about 3-5 minutes at a time. She states that the pain tends to start at rest and spontaneously resolves. She is not aware of any exacerbating or alleviating factors. She denies having had any nausea, vomiting or diaphoresis. Patient does admit to drinking some alcohol tonight. Review of Systems Review of Systems Constitutional: Denies fever or chills [] Respiratory: Denies cough or shortness of breath [] Cardiovascular: No additional information not addressed in HPI [] GI: Denies abdominal pain, nausea, vomiting or diarrhea [] Musculoskeletal: Denies back pain or joint pain [] Integument: Denies rash or skin lesions [] Neurologic: Denies headache, focal weakness or sensory changes [] All other systems were reviewed and found to be within normal limits, except as documented in this note. Current Medications Current Medications Current Medications Medications (Trade) Dose Ordered Sig/Madhav Start Time Stop Time Status Last Admin Dose Admin Sodium Chloride 1,000 ml @ 1,000 mls/hr Q1H 10/31/18 02:00 10/31/18 02:59 Allergies Allergies Allergies Coded Allergies Type Severity Reaction Last Updated Verified No Known Drug Allergies 08/07/18 No Physical Exam Physical Exam Constitutional: Well developed, well nourished, no acute distress, strong smell of alcohol on patient's breath. [] HENT: Normocephalic, atraumatic, bilateral external ears normal, oropharynx moist, no oral exudates, nose normal. [] Eyes: PERRLA, EOMI, conjunctiva normal, no discharge. [] Neck: Normal range of motion, no tenderness, supple, no stridor. [] Cardiovascular: Regular rate and rhythm[] Lungs & Thorax: Bilateral breath sounds clear to auscultation [] Abdomen: Bowel sounds normal, soft, no tenderness. [] Skin: Warm, dry, no erythema, no rash. [] Extremities: No tenderness, no cyanosis, no clubbing, ROM intact, no edema. [] Neurologic: Alert and oriented X 3, no focal deficits noted. [] EKG EKG EKG demonstrates normal sinus rhythm.[] Radiology/Procedures Radiology/Procedures [] Impressions: Chest x-ray demonstrates no acute process. Course & Med Decision Making Course & Med Decision Making Pertinent Labs and Imaging studies reviewed. (See chart for details) [] Dragon Disclaimer Dragon Disclaimer This electronic medical record was generated, in whole or in part, using a voice recognition dictation system. Departure Departure: Impression: Primary Impression: Chest wall pain Additional Impression: Alcohol intoxication Disposition: 01 HOME, SELF-CARE Condition: STABLE Referrals: AHMET COLÓN MD (PCP) Patient Instructions: Alcohol Intoxication, Chest Wall Pain Problem Qualifiers Additional Impression: Alcohol intoxication Complication of substance-induced condition: uncomplicated Qualified Codes: F10.920 - Alcohol use, unspecified with intoxication, uncomplicated JULIEN NESS Jr. DO Oct 31, 2018 01:39
[2018-10-31] MEDS ORDERED: IV NORMAL SALINE 1,000ML 1,000 ML IV SCH (02:00)
[2018-10-31 02:24] LABS: BASO % 1 % (0-3); EOS # 0.1 x10^3/uL (0.0-0.7); EOS % 3 % (0-3); HEMATOCRIT 40.3 % (36.0-47.0); HEMOGLOBIN 13.6 g/dL (12.0-15.5); LYMPH # 2.4 x10^3/uL (1.0-4.8); LYMPH % 53 % (24-48); MEAN CORPUSCULAR HEMOGLOBIN 31 pg (25-35); MEAN CORPUSCULAR HGB CONC 34 g/dL (31-37); MEAN CORPUSCULAR VOLUME 92 fL (79-100); MONO # 0.6 x10^3/uL (0.0-1.1); MONO % 13 % (0-9); NEUT # 1.4 x10^3uL (1.8-7.7); NEUT % 31 % (31-73); PLATELET COUNT 75 x10^3/uL (140-400); RED BLOOD COUNT 4.38 x10^6/uL (3.50-5.40); RED CELL DISTRIBUTION WIDTH 13.2 % (11.5-14.5); WHITE BLOOD COUNT 4.6 x10^3/uL (4.0-11.0)
[2018-10-31 02:27] LABS: BACTERIA,URINE FEW /HPF (0-FEW); BILIRUBIN,URINE NEG (NEG); CLARITY,URINE CLEAR; COLOR,URINE STRAW; GLUCOSE,URINE NEG (NEG); NITRITE,URINE NEG (NEG); RBC,URINE 0 /HPF (0-2); SQUAMOUS EPITHELIAL CELL,UR FEW /LPF; UROBILINOGEN,URINE 0.2 mg/dL (0.2 mg/dL); WBC,URINE OCC /HPF (0-4)
[2018-10-31 02:39] LABS: ALBUMIN 3.4 g/dL (3.4-5.0); ALBUMIN/GLOBULIN RATIO 0.9 (1.0-1.7); CALCIUM 8.7 mg/dL (8.5-10.1); GFR 69.9; MAGNESIUM 1.1 mg/dL (1.8-2.4); TOTAL BILIRUBIN 0.2 mg/dL (0.2-1.0); TOTAL PROTEIN 7.3 g/dL (6.4-8.2)
[2018-10-31 02:55] VITALS: BP 98/62
[2018-10-31 03:02] LABS: POTASSIUM 2.7 mmol/L (3.5-5.1)
[2018-10-31] MEDS ORDERED: POTASSIUM CHLORIDE 20 MEQ TABLET.ER. PO ONE (03:30)
--- NOTE | 2018-10-31 03:57 | RAD ---
PROCEDURE: PORTABLE CHEST 1V CLINICAL INDICATION: Chest pain COMPARISON: 08/07/2018 FINDINGS: No pneumothorax identified. Cardiac and mediastinal contours unremarkable. No pulmonary consolidation or acute airspace disease. No acute osseous abnormalities identified. IMPRESSION: No pulmonary consolidation or acute airspace disease. Electronically signed by: Bennett Davila DO (10/31/2018 3:54 AM) [facility]
--- NOTE | 2018-10-31 05:25 | EKG ---
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
== END 2018-10-31 03:00 | disposition home or self-care (01) ==
LOC: ER 01:17
DX: R07.89 Other chest pain (principal); F10.229 Alcohol dependence with intoxication, unspecified; J45.909 Unspecified asthma, uncomplicated; I25.10 Atherosclerotic heart disease of native coronary artery without angina pectoris; F32.9 Major depressive disorder, single episode, unspecified; E11.9 Type 2 diabetes mellitus without complications; K21.9 Gastro-esophageal reflux disease without esophagitis; I11.9 Hypertensive heart disease without heart failure; G43.909 Migraine, unspecified, not intractable, without status migrainosus; F17.210 Nicotine dependence, cigarettes, uncomplicated; Z86.73 Personal history of transient ischemic attack (TIA), and cerebral infarction without residual deficits; Y90.8 Blood alcohol level of 240 mg/100 ml or more
CPT/HCPCS: 36415; 71045; 80053; 81001; 83735; 84484; 85025; 93005; 99284; G0480; J7030

== ENCOUNTER 2020-03-05 09:50 | Emergency (ER) | payer OTHER ==
[~2020-03-05] VITALS: Ht 157.5 cm; Wt 65.4 kg
[2020-03-05 09:50] VITALS: BP 107/78
[~2020-03-05 09:50] MED LIST changes: +MONT10TA80 PO; -MONT10TA9 PO; -OLOP2.5D OP; +OLOP2.5D12 OP; +OMEP20CA16 PO; -OMEP20CA9 PO
[2020-03-05 10:15] LABS: BASO % 1 % (0-3); EOS # 0.1 x10^3/uL (0.0-0.7); EOS % 2 % (0-3); HEMATOCRIT 44.2 % (36.0-47.0); HEMOGLOBIN 14.7 g/dL (12.0-15.5); LYMPH % 23 % (24-48); MEAN CORPUSCULAR HEMOGLOBIN 31 pg (25-35); MEAN CORPUSCULAR HGB CONC 33 g/dL (31-37); MEAN CORPUSCULAR VOLUME 94 fL (79-100); MONO # 0.7 x10^3/uL (0.0-1.1); MONO % 15 % (0-9); NEUT # 2.6 x10^3uL (1.8-7.7); NEUT % 59 % (31-73); PLATELET COUNT 78 x10^3/uL (140-400); RED BLOOD COUNT 4.71 x10^6/uL (3.50-5.40); RED CELL DISTRIBUTION WIDTH 14.4 % (11.5-14.5); WHITE BLOOD COUNT 4.5 x10^3/uL (4.0-11.0)
[2020-03-05] MEDS ORDERED: IV NORMAL SALINE 1,000ML 1,000 ML IV ONE (10:15)
[2020-03-05 10:28] LABS: CALCIUM 9.2 mg/dL (8.5-10.1); CREATININE 0.8 mg/dL (0.6-1.0); GFR 90.1; POTASSIUM 3.4 mmol/L (3.5-5.1)
[2020-03-05 10:35] LABS: ALBUMIN 3.1 g/dL (3.4-5.0); ALBUMIN/GLOBULIN RATIO 0.6 (1.0-1.7); MAGNESIUM 1.5 mg/dL (1.8-2.4); TOTAL BILIRUBIN 0.8 mg/dL (0.2-1.0); TOTAL PROTEIN 8.2 g/dL (6.4-8.2)
--- NOTE | 2020-03-05 10:53 | RAD ---
PQRS Compliance Statement: One or more of the following individualized dose reduction techniques were utilized for this examination: 1. Automated exposure control 2. Adjustment of the mA and/or kV according to patient size 3. Use of iterative reconstruction technique CT abdomen/pelvis without contrast 03/05/2020 10:05 AM INDICATION: Right flank pain. COMPARISON: CT abdomen/pelvis 12/05/2017 TECHNIQUE: Multiple axial CT images of the abdomen and pelvis were obtained without intravenous contrast. Coronal and sagittal reformats are provided. FINDINGS: Lung bases are clear. Heart size within normal limits. Evaluation of solid abdominal viscera is limited by the lack of intravenous contrast. Liver, spleen, bilateral adrenal glands and pancreas are normal in appearance. Calcified gallstones identified within gallbladder compatible with cholelithiasis. No gallbladder wall thickening or pericholecystic inflammation. Abdominal aorta is normal in course and caliber. No pathologically enlarged lymph nodes are identified in abdomen and pelvis. There is no free fluid or free intraperitoneal air. Small amount of stool is identified throughout the colon. Few scattered colonic diverticula. The appendix is normal in appearance. No bowel obstruction or inflammation. There is a 2 mm nonobstructing calculus in interpolar right kidney. No hydronephrosis. Urinary bladder is within normal limits in degree of distention. No suspicious pelvic mass. No suspicious osseous abnormality is identified. IMPRESSION: 1. Cholelithiasis without CT evidence for acute cholecystitis. 2. Appendix is normal. 3. 2 mm nonobstructing calculus identified in the interpolar right kidney. No hydronephrosis. No obstructive uropathy. Electronically signed by: Tiffanie Messina MD (03/05/2020 10:51 AM) [facility]
[2020-03-05 10:54] LABS: CLARITY,URINE HAZY; COLOR,URINE AMBER
[2020-03-05 10:55] LABS: BACTERIA,URINE 0 /HPF (0-FEW); BILIRUBIN,URINE NEG (NEG); GLUCOSE,URINE 100 mg/dL (NEG); NITRITE,URINE POS (NEG); SQUAMOUS EPITHELIAL CELL,UR MANY /LPF; UROBILINOGEN,URINE >=8.0 mg/dL (0.2 mg/dL)
[2020-03-05] MEDS ORDERED: CEPH-264 PO (11:10)
[2020-03-05] MEDS ORDERED: PHEN-318 PO (11:10)
[2020-03-05] MEDS ORDERED: IV NORMAL SALINE 50ML 50 ML ONE (11:13)
--- NOTE | 2020-03-05 11:13 | PHYS DOC ---
Past History Past Medical History: Asthma, CAD, CHF, Depression, Diabetes, GERD, Heart Disease, Hypertension, [place], Migraines, Renal Disease, TIA, UTI, Other Past Surgical History: Smoking: Cigarettes Alcohol Use: Heavy Drug Use: None General Adult EDM: Chief Complaint: FLANK PAIN HPI: HPI: Patient is a [age] year old [sex] who presents with [] Review of Systems: Review of Systems: Constitutional: Denies fever or chills Eyes: Denies change in visual acuity HENT: Denies nasal congestion or sore throat Respiratory: Denies cough or shortness of breath Cardiovascular: Denies chest pain or edema GI: Denies abdominal pain, nausea, vomiting, bloody stools or diarrhea : Denies dysuria Musculoskeletal: Denies back pain or joint pain Integument: Denies rash Neurologic: Denies headache, focal weakness or sensory changes Endocrine: Denies polyuria or polydipsia Lymphatic: Denies swollen glands Psychiatric: Denies depression or anxiety Heart Score: Risk Factors: Risk Factors: DM, Current or recent (<one month) smoker, HTN, HLP, family history of CAD, obesity. Risk Scores: Score 0 - 3: 2.5% MACE over next 6 weeks - Discharge Home Score 4 - 6: 20.3% MACE over next 6 weeks - Admit for Clinical Observation Score 7 - 10: 72.7% MACE over next 6 weeks - Early Invasive Strategies Current Medications: Current Meds: Current Medications Medications (Trade) Dose Ordered Sig/Madhav Start Time Stop Time Status Last Admin Dose Admin Sodium Chloride 1,000 ml @ 1,000 mls/hr 1X ONCE 03/05/20 10:15 03/05/20 11:14 03/05/20 10:25 1,000 MLS/HR Allergies: Allergies: Allergies Coded Allergies Type Severity Reaction Last Updated Verified No Known Drug Allergies 08/07/18 No Physical Exam: PE: Constitutional: Well developed, well nourished, no acute distress, non-toxic appearance. [] HENT: Normocephalic, atraumatic, bilateral external ears normal, oropharynx christal st, no oral exudates, nose normal. [] Eyes: PERRLA, EOMI, conjunctiva normal, no discharge. [] Neck: Normal range of motion, no tenderness, supple, no stridor. [] Cardiovascular:Heart rate regular rhythm, no murmur [] Lungs & Thorax: Bilateral breath sounds clear to auscultation [] Abdomen: Bowel sounds normal, soft, no tenderness, no masses, no pulsatile masses. [] Skin: Warm, dry, no erythema, no rash. [] Back: No tenderness, no CVA tenderness. [] Extremities: No tenderness, no cyanosis, no clubbing, ROM intact, no edema. [] Neurologic: Alert and oriented X 3, normal motor function, normal sensory function, no focal deficits noted. [] Psychologic: Affect normal, judgement normal, mood normal. [] Current Patient Data: Labs: Laboratory Tests Test 03/05/20 10:00 03/05/20 10:10 White Blood Count 4.5 x10^3/uL (4.0-11.0) Red Blood Count 4.71 x10^6/uL (3.50-5.40) Hemoglobin 14.7 g/dL (12.0-15.5) Hematocrit 44.2 % (36.0-47.0) Mean Corpuscular Volume 94 fL (79-100) Mean Corpuscular Hemoglobin 31 pg (25-35) Mean Corpuscular Hemoglobin Concent 33 g/dL (31-37) Red Cell Distribution Width 14.4 % (11.5-14.5) Platelet Count 78 x10^3/uL (140-400) L Neutrophils (%) (Auto) 59 % (31-73) Lymphocytes (%) (Auto) 23 % (24-48) L Monocytes (%) (Auto) 15 % (0-9) H Eosinophils (%) (Auto) 2 % (0-3) Basophils (%) (Auto) 1 % (0-3) Neutrophils # (Auto) 2.6 x10^3uL (1.8-7.7) Lymphocytes # (Auto) 1.0 x10^3/uL (1.0-4.8) Monocytes # (Auto) 0.7 x10^3/uL (0.0-1.1) Eosinophils # (Auto) 0.1 x10^3/uL (0.0-0.7) Basophils # (Auto) 0.0 x10^3/uL (0.0-0.2) Sodium Level 135 mmol/L (136-145) L Potassium Level 3.4 mmol/L (3.5-5.1) L Chloride Level 99 mmol/L (98-107) Carbon Dioxide Level 25 mmol/L (21-32) Anion Gap 11 (6-14) Blood Urea Nitrogen 9 mg/dL (7-20) Creatinine 0.8 mg/dL (0.6-1.0) Estimated GFR (Cockcroft-Gault) 90.1 BUN/Creatinine Ratio 11 (6-20) Glucose Level 125 mg/dL (70-99) H Lactic Acid Level 1.0 mmol/L (0.4-2.0) Calcium Level 9.2 mg/dL (8.5-10.1) Magnesium Level 1.5 mg/dL (1.8-2.4) L Total Bilirubin 0.8 mg/dL (0.2-1.0) Aspartate Amino Transferase (AST) 30 U/L (15-37) Alanine Aminotransferase (ALT) 31 U/L (14-59) Alkaline Phosphatase 68 U/L (46-116) Total Protein 8.2 g/dL (6.4-8.2) Albumin 3.1 g/dL (3.4-5.0) L Albumin/Globulin Ratio 0.6 (1.0-1.7) L Urine Collection Type Unknown Urine Color Stephany Urine Clarity Hazy Urine pH 6.0 Urine Specific [place] >=1.030 Urine Protein 100 mg/dl (NEG-TRACE) Urine Glucose (UA) 100 mg/dL (NEG) Urine Ketones (Stick) Trace mg/dL (NEG) Urine Blood Mod (NEG) Urine Nitrite Pos (NEG) Urine Bilirubin Neg (NEG) Urine Urobilinogen Dipstick >=8.0 mg/dL (0.2 mg/dL) Urine Leukocyte Esterase Neg (NEG) Urine RBC 6-10 /HPF (0-2) Urine WBC 5-10 /HPF (0-4) Urine Squamous Epithelial Cells Many /LPF Urine Bacteria 0 /HPF (0-FEW) Urine Mucus Marked /LPF Vital Signs: Vital Signs Date Time Temp Pulse Resp B/P (MAP) Pulse Ox O2 Delivery O2 Flow Rate FiO2 03/05/20 09:50 98.4 88 16 107/78 (88) 96 Room Air EKG: EKG: [] Radiology/Procedures: Radiology/Procedures: [] Course & Med Decision Making: Course & Med Decision Making Pertinent Labs and Imaging studies reviewed. (See chart for details) [] Dragon Disclaimer: Dragon Disclaimer: This electronic medical record was generated, in whole or in part, using a voice recognition dictation system. Departure Departure: Impression: Primary Impression: Pyelonephritis Additional Impressions: Hypokalemia Hypomagnesemia Disposition: HOME/RESIDENCE PRIOR TO ADM Condition: STABLE Referrals: AHMET COLÓN MD (PCP) Patient Instructions: Hypokalemia, Hypomagnesemia, Potassium Content of Foods, Pyelonephritis, Adult, Vcey-dw-Dcgh Scripts Hydrocodone Bit/Acetaminophen (NORCO 5-325 TABLET) 1 Each Tablet 0.5-1 TAB PO Q6-8HRS PRN for PAIN, #10 TAB Prov: BRODERICK DOBBS DO 03/05/20 Cephalexin (KEFLEX) 500 Mg Capsule 1 CAP PO TID for UTI for 7 Days, #21 CAP 0 Refills Prov: BRODERICK DOBBS DO 03/05/20 Phenazopyridine Hcl (PYRIDIUM) 200 Mg Tablet 200 MG PO TID for urinary tract infection, #6 TAB Prov: BRODERICK DOBBS DO 03/05/20 Justification of Admission: Justification of Admission: Justification of Admission Dx: N/A BRODERICK DOBBS DO Mar 05, 2020 11:13
[2020-03-05] MEDS ORDERED: cefTRIAXone SODIUM 1 GM VIAL ONE (11:14)
[2020-03-05] MEDS ORDERED: MAGNESIUM CHLORIDE ER 64 MG TABLET.ER PO ONE (11:15)
[2020-03-05] MEDS ORDERED: POTASSIUM CHLORIDE 20 MEQ TABLET.ER. PO ONE (11:15)
[2020-03-05] MEDS ORDERED: PHENAZOPYRIDINE 200 MG TABLET. PO ONE (11:15)
[2020-03-05] MEDS ORDERED: HYDR-3165 PO (11:22)
== END 2020-03-05 11:26 | disposition home or self-care (01) ==
LOC: ER 09:50
DX: N12 Tubulo-interstitial nephritis, not specified as acute or chronic (principal); E87.6 Hypokalemia; E83.42 Hypomagnesemia; J45.909 Unspecified asthma, uncomplicated; I11.0 Hypertensive heart disease with heart failure; I50.9 Heart failure, unspecified; I25.10 Atherosclerotic heart disease of native coronary artery without angina pectoris; E11.9 Type 2 diabetes mellitus without complications; K21.9 Gastro-esophageal reflux disease without esophagitis; F17.210 Nicotine dependence, cigarettes, uncomplicated; F10.20 Alcohol dependence, uncomplicated; Z86.73 Personal history of transient ischemic attack (TIA), and cerebral infarction without residual deficits; Z87.440 Personal history of urinary (tract) infections; Z98.890 Other specified postprocedural states; Y90.9 Presence of alcohol in blood, level not specified
CPT/HCPCS: 36415; 74176; 80053; 81001; 83605; 83735; 85025; 87086; 96374; 99284; J0696; J7030

== ENCOUNTER → 2020-03-14 | Outpatient (CLI) | payer OTHER ==
[2020-03-05 09:50] VITALS: BP 107/78
[~2020-03-14] MED LIST changes: +CEPH-264 PO; +HYDR-3165 PO; +PHEN-318 PO
--- NOTE | 2020-03-14 15:33 | RAD ---
EXAM: DUAL ENERGY X-RAY ABSORPTIOMETRY (DEXA). HISTORY: Postmenopausal screening. Cigarette smoking history. FINDINGS: The lowest measured T-score is -1.3 in the right hip, based on a bone mineral density of 0.790 g/cm^2. Refer to the worksheets for full detail. No comparison examinations are available. IMPRESSION: Low bone mass. Bone mineral density yields a T-score between -1.0 and -2.5. Fracture risk is increased. METHODOLOGY: Dual energy x-ray absorptiometry was performed to measure bone mineral density. The following analysis is based on the 2019 Official Positions of the International Society for Clinical Densitometry: Measurements of the hips and the average of L1-L4 are preferred. When the spine and/or hip cannot be feasibly measured or interpreted, or in the setting of hyperparathyroidism, distal radial bone mineral density may be measured. The lumbar spine T-score is based on the average bone mineral density of L1-L4. In the setting of artifact or anatomic abnormality, some lumbar levels may be excluded, and the remaining levels used for calculation. A single lumbar level is not used for diagnosis, and if only a single level is available for assessment, another anatomic site will be used to assign a diagnosis. The hip T-score is based on the bone mineral density measurement of the femoral neck or total proximal femur of either side, whichever is lowest. Bilateral mean values are not used for diagnosis. The forearm T-score is derived from 33% of the distal radius of the nondominant forearm. Electronically signed by: Greta Sky MD (03/14/2020 3:30 PM) [email or web address]
--- NOTE | 2020-03-14 16:06 | RAD ---
DATE: 03/14/2020 9:20 AM EXAM: DIGITAL SCREEN BILAT W/CAD HISTORY: Screening COMPARISON: 05/31/2016 Bilateral full field craniocaudal and mediolateral oblique images were obtained using digital technique. This study was interpreted with the benefit of Computerized Aided Detection (CAD). FINDINGS: Breast Density: HETERO The breast parenchyma Is heterogeneously dense, which could reduce sensitivity of mammography. Breast parenchyma level C Stable 2.6 cm oval circumscribed isodense mass in the lateral periareolar left breast. No suspicious masses, microcalcifications or architectural distortion is present to suggest malignancy in either breast. The visualized axillae are unremarkable. IMPRESSION: No mammographic evidence of malignancy. BI-RADS CATEGORY: 2 BENIGN FINDING(S) RECOMMENDED FOLLOW-UP: 12M 12 MONTH FOLLOW-UP Annual screening mammography is recommended, unless clinically indicated sooner based on symptoms or change in physical exam. PQRS compliance statement: Patient information was entered into a reminder system with a target due date 03/15/2021 for the next mammogram. Mammography is a sensitive method for finding small breast cancers, but it does not detect them all and is not a substitute for careful clinical examination. A negative mammogram does not negate a clinically suspicious finding and should not result in delay in biopsying a clinically suspicious abnormality. "Our facility is accredited by the [employer] Mammography Program."
== END | disposition home or self-care (01) ==
LOC: MAMMO 09:17
PROVIDERS: ATTEND Family Medicine
DX: Z12.31 Encounter for screening mammogram for malignant neoplasm of breast (principal); M85.80 Other specified disorders of bone density and structure, unspecified site; Z87.891 Personal history of nicotine dependence
CPT/HCPCS: 77067; 77080